=== PATIENT | female | born 1990 | race Caucasian/White ===

== ENCOUNTER 2017-02-15 17:08 | Emergency (ER) | payer OTHER ==
[~2017-02-15] VITALS: Ht 157.5 cm; Wt 81.7 kg
[~2017-02-15 17:08] MED LIST: ACETAMINOPHEN-1 EAC1 PO; AMOXICILLIN500 MG PO; CEPHALEXIN500 MG PO; CLINDAMYCIN HC150 MG PO; HYDROXYZINE HCL25 MG PO; NAPROSYN500 MG PO; NEXIUM 24HR20 M1 PO; NORCO 5-325 TA1 EACH PO; OMEPRAZOLE20 MG PO; PERCOCET 5-3251 EACH PO; ZOFRAN4 MG PO
== END 2017-02-15 20:06 | disposition home or self-care (01) ==
LOC: ED 17:08
DX: F32.9 Major depressive disorder, single episode, unspecified (principal); R45.851 Suicidal ideations; F41.9 Anxiety disorder, unspecified; Z88.0 Allergy status to penicillin; Z88.1 Allergy status to other antibiotic agents; Z88.5 Allergy status to narcotic agent; Z79.899 Other long term (current) drug therapy
CPT/HCPCS: 80053; 80176; 81001; 84443; 84703; 85025; 96372; 99283; G0480; J3486

== ENCOUNTER 2020-01-20 19:30 | Emergency (ER) | payer OTHER ==
[~2020-01-20] VITALS: Ht 157.5 cm; Wt 92.1 kg
--- OUTSIDE RECORDS SUMMARY | ~2020-01-20 | XMS | Encounter Summary ---
Demographics + + + | Address | [address] | | | [place] [address] | + + + | Home Phone | | + + + | Preferred Language | Unknown | + + + | Marital Status | Single | + + + | Taoism Affiliation | Unknown | + + + | Race | Unknown | + + + | Ethnic Group | Unknown | + + + Author + + + | Author | [facility] | | | and [place] | + + + | Organization | [facility] | | | and [place] | + + + | Address | Unknown | + + + | Phone | Unavailable | + + + Support + + +---------+ + | Name | Relationship | Address | Phone | + + +---------+ + | Vidal Shipman ECON | Unknown | | | [place] | | | | + + +---------+ + Care Team Providers + +------+ + | Care Oyster Culler Name | Role | Phone | + +------+ + PCP | Unavailable | + +------+ + Encounter Details +--------+ + + + + | Date | Type | Department | Care Team | Description | +--------+ + + + + | 08/30/ | Hospital | [facility] | | | | 1995 | Encounter | MED CTR EMERGENCY | | | | | | [address] | | | | | | [place] | | | | | | [address] | | | | | | [phone] | | | +--------+ + + + + Social History + +-------+ +--------+------+ | Tobacco Use | Types | Packs/Day | Years | Date | | | | | Used | | + +-------+ +--------+------+ | Never Assessed | | | | | + +-------+ +--------+------+ + + + | Sex Assigned at | Date Recorded | | | | + + + | Not on file | | + + + documented as of this encounter Plan of Treatment Not on filedocumented as of this encounter Visit Diagnoses Not on filedocumented in this encounter"
--- OUTSIDE RECORDS SUMMARY | ~2020-01-20 | XMS | Clinical Summary ---
Demographics + + + | Address | [address] | | | [place] [address] | + + + | Home Phone | | + + + | Preferred Language | Unknown | + + + | Marital Status | Single | + + + | Church Affiliation | Unknown | + + + | Race | Unknown | + + + | Ethnic Group | Unknown | + + + Author + + + | Author | [facility] | | | and [place] | + + + | Organization | [facility] | | | [...] Team Providers + +------+ + | Care Tandem Mill Roller Name | Role | Phone | + +------+ + | Addison Toussaint DO | PCP | | + +------+ + Allergies Not on File Medications Not on file Active Problems Not on file Social History + +-------+ +--------+------+ | Tobacco [...] on file | | + + + Last Filed Vital Signs Not on file Plan of Treatment + + + + + | Health Maintenance | Due Date | Last | Comments | | | | Done | | + + + + + | Cervical Cancer | | | | | Screening (Pap) | 3 | | | + + + + + | Vaccine: Influenza | | 06/30/19 | | | (#1) | 0 | 19, | | | | | 05/13/20 | | | | | 17, | | | | | 06/04/20 | | | | | 09 | | + + + + + | Vaccine: | | 02/27/20 | | | Dtap/Tdap/Td (2 - | 4 | 14 | | | Td) | | | | + + + + + Results Not on filefrom Last 3 Months Insurance + +--------+ +--------+ +---------+--------+ | Payer | Benefi | Subscriber | Effect | Phone | Address | Type | | | t Plan | ID | roula | | | | | | / | | Dates | | | | | | Group | | | | | | + +--------+ +--------+ +---------+--------+ | [employer] | [employer] | [id number] | 08/04/19 | [phone] | | Medica | | MEDICAID HMO | HEALTH | | 19-Pre | 1 | | id | | | MDCD | | sent | | | | | | HMO [place] | | | | | | + +--------+ +--------+ +---------+--------+ + +--------+ +--------+ + + | Guarantor Name | Accoun | Relation to | Date | Phone | Billing Address | | | t Type | Patient | of | | | | | | | | | | + +--------+ +--------+ + + | Anahi Ely | Person | Self [birth year] | [address] | | | al/Fam | | 1990 | [phone] | [place] [address] | | | marixa | | | 7 (Home) | | + +--------+ +--------+ + + Advance Directives + + + + + | Type | Date Recorded | Patient | Explanation | | | | Mail Order Sorter | | + + + + + | Power of | | | | | Signal Timer | | | | + + + + + | Advance | | | | | Directive | | | | + + + + +"
--- OUTSIDE RECORDS SUMMARY | ~2020-01-20 | XMS | Encounter Summary ---
Demographics + + + | Address | [address] | | | [place] [address] | + + + | Home Phone | | + + + | Preferred Language | Unknown | + + + | Marital Status | Single | + + + | Advent Affiliation | Unknown | + + + | Race | Unknown | + + + | Ethnic Group | Unknown | + + + Author + + + | Author | [facility] | | | and [place] | + + + | Organization | [facility] | | | and [...] Team Providers + +------+ + | Care Nurse Researcher Name | Role | Phone | + [...] | | LUCIANA SINGH | [place] [address] | | | | | [place] [address] | | | | | | [phone] | | | +--------+ + + + [...]
[~2020-01-20 19:30] MED LIST changes: +IBUPROFEN600 MG PO
== END 2020-01-20 22:10 | disposition home or self-care (01) ==
LOC: ED 19:30
DX: F10.129 Alcohol abuse with intoxication, unspecified (principal); F32.9 Major depressive disorder, single episode, unspecified; F41.9 Anxiety disorder, unspecified; F17.200 Nicotine dependence, unspecified, uncomplicated; Z88.0 Allergy status to penicillin; Z88.5 Allergy status to narcotic agent; Z88.1 Allergy status to other antibiotic agents; Z79.899 Other long term (current) drug therapy; Y90.3 Blood alcohol level of 60-79 mg/100 ml
CPT/HCPCS: 80053; 85025; 99284; G0480; J7030

== ENCOUNTER 2020-01-30 09:36 | Emergency (ER) | payer OTHER ==
[~2020-01-30] VITALS: Ht 157.5 cm; Wt 94.3 kg
--- OUTSIDE RECORDS SUMMARY | ~2020-01-30 | XMS | Encounter Summary ---
Demographics + + + | Address | [address] | | | [place] [address] | + + + | Home Phone | | + + + | Preferred Language | Unknown | + + + | Marital Status | Single | + + + | Jewish Affiliation | Unknown | + + + | Race | Unknown | + + + | Ethnic Group | Unknown | + + + Author + + + | Author | [facility] | | | and [place] | + + + | Organization | [facility] | | | and [...] Team Providers + +------+ + | Care Compliance Review Officer Name | Role | Phone | + +------+ + | Addison Toussaint DO | PCP | | + +------+ + Encounter Details +--------+ + + + + | Date | Type | Department | Care Team | Description | +--------+ + + + + | 08/24/ | Imaging | [facility] | Provider, | | | 2019 | Exam | MED CTR EXTERNAL | [address] | | | | | IMAGING [address] | [address] | | | | | [place] | [place] [address] | | | | | [place] [address] | | | | | | [phone] | | | +--------+ + + + [...] Not on filedocumented as of this encounter Procedures + +--------+ + + + | Procedure Name | Priori | Date/Time | Associated Diagnosis | Comments | | | ty | | | | + +--------+ + + + | XR HIP LEFT 2-3 | Routin | 06/30/2018 | | Results for this | | VIEWS | e | 10:05 AM | | procedure are in the | | | | PST | | results section. | + +--------+ + + + documented in this encounter Results XR Hip Left 2-3 Views (06/30/2018 10:05 AM PST) + + | Specimen | + + | | + + + + + | Narrative | Performed At | + + + | External films for comparison only | [facility] | | | | | No results will be in the chart. | | + + + + +---------+ + + | Performing | Address | City/State/Zipcode | Phone Number | | Organization | | | | + +---------+ + + | [facility] | | | | + +---------+ + + documented in this encounter Visit Diagnoses Not on filedocumented in this encounter"
--- OUTSIDE RECORDS SUMMARY | ~2020-01-30 | XMS | Encounter Summary ---
Demographics + + + | Address | [address] | | | [place] [address] | + + + | Home Phone | | + + + | Preferred Language | Unknown | + + + | Marital Status | Single | + + + | Orthodoxy Affiliation | Unknown | + + + | Race | Unknown | + + + | Ethnic Group | Unknown | + + + Author + + + | Author | [facility] | | | and [place] | + + + | Organization | [facility] | | | [...] Team Providers + +------+ + | Care Capacity Planning Engineer Name | Role | Phone | + +------+ + PCP | Unavailable | + +------+ + Encounter Details +--------+ + + + + | Date | Type | Department | Care Team | Description | +--------+ + + + + | 08/30/ | Hospital | [facility] | | | | 1994 | Encounter | MED CTR EMERGENCY | | | | | | [address] | | | | | | [place] | | | | | | [address] | | | | | | [phone] | | | +--------+ + + + [...]
--- OUTSIDE RECORDS SUMMARY | ~2020-01-30 | XMS | Clinical Summary ---
Demographics + + + | Address | [address] | | | [place] [address] | + + + | Home Phone | | + + + | Preferred Language | Unknown | + + + | Marital Status | Single | + + + | Jehovah'S Witness Affiliation | Unknown | + + + | Race | Unknown | + + + | Ethnic Group | Unknown | + + + Author + + + | Author | [facility] | | | and [place] | + + + | Organization | [facility] | | | [...] Team Providers + +------+ + | Care Is Analyst Name | Role | Phone | + [...] | [employer] | [employer] | [id number] | 08/04/19 | [phone] | | Medica [...] | | al/Fam | | 1990 | [phone] | [place] [address] | | | marixa | | | 7 (Home) | | + +--------+ +--------+ + + Advance Directives + + + + + | Type | Date Recorded | Patient | Explanation | | | | Wood Car Builder | | + + + + + | Power of | | | | | Waste Machine Tender | | | | + + + + + | Advance | | | | | Directive | | | | + + + + +"
--- OUTSIDE RECORDS SUMMARY | 2020-01-30 09:40 | XMS ---
PreManage Notification: BRENDAN MCKEON Security Assistant Golf Course Superintendent Events No recent Security Events currently on file CRITERIA MET - [facility] - 2 Visits in 30 Days CARE PROVIDERS There are no care providers on record at this time. Tamiko has no Care Guidelines for this patient. Kathi VISIT COUNT (12 MO.) 2 [facility] TOTAL 2 NOTE: Visits indicate total known visits. ED/[facility] VISIT TRACKING (12 MO.) 01/30/2020 09:[facility] [place] TYPE: Emergency COMPLAINT: - HIGH HEART RATE, FAINT 01/20/2020 19:[address] [facility] [place] TYPE: Emergency COMPLAINT: - ANXIETY DIAGNOSES: - Allergy status to penicillin - Anxiety disorder, unspecified - Major depressive disorder, single episode, unspecified - Other terminal carman (current) drug therapy - Allergy status to other antibiotic agents status - Allergy status to narcotic agent status - Alcohol abuse with intoxication, unspecified - Blood alcohol level of 60-79 mg/100 ml - Nicotine dependence, unspecified, uncomplicated INPATIENT VISIT TRACKING (12 MO.) No inpatient visits to display in this time frame [email or web address]
[2020-01-30] MEDS ORDERED: ZITHROMAX250 MG PO (12:53)
--- NOTE | 2020-01-30 19:32 | EKG ---
[facility] [address] [place] [address] Signed Normal sinus rhythm with sinus arrhythmia Cannot rule out Anterior infarct , age undetermined Abnormal ECG No previous ECGs available Confirmed by ROEL HDUSON MD ([id number]) on 01/30/2020 7:32:36 PM Electronically Signed By: ROEL HUDSON MD 01/30/201931 PATIENT NAME: ELI MCKEONALEJO RIVAS Electrocardiogram DATE OF : [birth year] PHYSICIAN: ROEL HUDSON MD REPORT #: [id number] REPORT IS CONFIDENTIAL AND NOT TO BE RELEASED WITHOUT AUTHORIZATION
== END 2020-01-30 13:30 | disposition home or self-care (01) ==
LOC: ED 09:36
DX: J18.9 Pneumonia, unspecified organism (principal); Z20.828 Contact with and (suspected) exposure to other viral communicable diseases; Z88.0 Allergy status to penicillin; Z88.5 Allergy status to narcotic agent
CPT/HCPCS: 71045; 80053; 81001; 83605; 83735; 84484; 84703; 85025; 85651; 86140; 93005; 93010; 99285-25

== ENCOUNTER 2020-08-15 06:30 | Day surgery (SDC) | payer OTHER ==
[~2020-08-15] VITALS: Ht 157.5 cm; Wt 95.0 kg
[~2020-08-15 06:30] MED LIST changes: +ZITHROMAX250 MG PO
[2020-08-15] MEDS ORDERED: NITROFURANTOIN100 M1 (06:41)
[2020-08-15] MEDS ORDERED: CELECOXIB200 MG PO (08:40)
[2020-08-15] MEDS ORDERED: OXYCODONE HCL5 MG PO (08:41)
--- NOTE | 2020-08-15 08:52 | NUR ---
08/15/20 0852 [place],Ama 0838- PT ARRIVES TO PACU AROUSABLE TO STIMULI. PT DOES NOT FOLLOW COMMANDS. PT UPDATED THAT SHE IS IN THE RECOVERY ROOM AND SURGERY IS ALL OVER. PT KEEPS MOVING HER ARMS AND LEGS. ATTEMPTED TO CALM PT. PT WILL CALM MOMENTARILY AND THEN START MOVING AROUND AGAIN. RESP EVEN AND UNLABORED. OXYGEN SAT HIGH 90'S ON 6L VIA MASK. 0841- PT TURNS HERSELF TO HER RIGHT SIDE SHE STATES THIS IS MORE COMFORTABLE FOR HER. 0844- OXYGEN TITRATED OFF. 0846- PT PROVIDED A PILLOW CASE PER HER REQUEST SHE WANTS TO HOLD ON TO IT. PT ENCOURAGED TO COUGH AND DEEP BREATHE HER OXYGEN SAT DROPPED TO 87% ON RA. PT IS ABLE TO DO THIS AND OXYGEN SAT INCREASED TO THE MID 90'S ON RA. 0848- PT PROVIDED A WARM BLANKET PER HER REQUEST.
--- NOTE | 2020-08-15 09:55 | NUR ---
PT ALERT, ORIENTED AND SUPPORTED BY HER S.O. ALLISON. PT'S FIRST SURGERY. PT SAYS SHE IS IN CONTROL, LOOKING FORWARD TO GETTING MORE USE OF HAND BACK. ALEKSEY ASKED ANSWERED. GAVE BLESSING, ALLISON WILL REMAIN
--- NOTE | 2020-08-15 10:03 | NUR ---
AMB TO [facility] LARGE [facility]T. DID WELL. DENIES DIZZINESS BEING UP.
--- NOTE | 2020-08-15 10:28 | NUR ---
1010 AWAKE AND READY TO GO HOME. TAKING PO AND AMB AND VOIDS.
--- NOTE | 2020-08-18 08:49 | OR ---
[facility] [address] [place], [place] [address] Signed DATE OF OPERATION: 08/15/2020 SURGEON: Kilo Mcmillan MD PREOPERATIVE DIAGNOSIS: Right dorsal ganglion wrist. POSTOPERATIVE DIAGNOSIS: Right dorsal ganglion wrist. PROCEDURE PERFORMED: Excision ganglion, right wrist. ROUTE SALESMAN AND DRIVER: None. ANESTHESIA: Denzel block. TOURNIQUET TIME: 22 minutes. BRIEF HISTORY: Hermelinda is a 29-year-old female with painful cyst on the back of her wrist. Splint again not helped. Risks and benefits of excision were discussed with her and she elected to proceed. DESCRIPTION OF PROCEDURE: Once consent was obtained, she was taken to the operating room. After adequate anesthesia, she was placed on the outpatient table. The [place] block was established and the hand was prepped and draped in a standard sterile fashion. The cyst was easily palpable and was marked out. A 1 inch incision was made transversely across the wrist crease carried through skin and subcutaneous tissue. The cyst was again easily identifiable and dissection was taken between 2nd and 3rd dorsal compartments. The cyst was eventually dissected free of overlying soft tissue and all bleeders were cauterized as we went. The tendons were carefully retracted and protected. The cyst was dissected from the attachment to the dorsal capsule. This was dissected down to a stalk, which was transected. The cyst was passed off the table. The surrounding soft tissue was then roughened using the curette, copiously irrigated with antibiotic solution. The wound was then closed in layers using 3-0 Monocryl. Steri-Strips were applied. The Electronically Signed By: KILO MCMILLAN MD 08/18/20 0849 PATIENT NAME: HERMELINDA MCKEON OPERATIVE REPORT DATE OF : [birth year] REPORT #: [id number] PHYSICIAN: KILO MCMILLAN MD PCP: QAMAR QUACH DO REPORT IS CONFIDENTIAL AND NOT TO BE RELEASED WITHOUT AUTHORIZATION [facility] [address], [place] [address] Signed wound was then infiltrated with an 8 mL 0.25% plain Marcaine. The wound was dressed with Adaptic, sterile gauze and a radial gutter splint. She tolerated the procedure well. All sponge, needle, and instrument counts were correct. Kilo Mcmillan MD BA/MODL /[id number] Copies: ~ Electronically Signed By: KILO MCMILLAN MD 08/18/20 0849 PATIENT NAME: HERMELINDA MCKEON OPERATIVE REPORT DATE OF : [birth year] REPORT #: [id number] PHYSICIAN: KILO MCMILLAN MD PCP: QAMAR QUACH DO REPORT IS CONFIDENTIAL AND NOT TO BE RELEASED WITHOUT AUTHORIZATION
== END 2020-08-15 10:10 | disposition home or self-care (01) ==
LOC: DS 06:30
PROVIDERS: ATTEND Specialist
PROC: 0LB50ZZ Excision of Right Lower Arm and Wrist Tendon, Open Approach (ICD-10-PCS; principal; 2020-08-15 08:00)
DX: M67.431 Ganglion, right wrist (principal); M19.90 Unspecified osteoarthritis, unspecified site; K21.9 Gastro-esophageal reflux disease without esophagitis; Z88.1 Allergy status to other antibiotic agents; Z88.5 Allergy status to narcotic agent; Z88.0 Allergy status to penicillin; Z91.048 Other nonmedicinal substance allergy status; Z87.891 Personal history of nicotine dependence
CPT/HCPCS: J0690; J1885; J2001; J2704; J3010; J7121

== ENCOUNTER 2021-03-11 08:35 | Emergency (ER) | payer OTHER ==
[~2021-03-11] VITALS: Ht 157.5 cm; Wt 94.8 kg
[~2021-03-11 08:35] MED LIST changes: +CELECOXIB200 MG PO; +NITROFURANTOIN100 M1; +OXYCODONE HCL5 MG PO
--- OUTSIDE RECORDS SUMMARY | 2021-03-11 08:44 | XMS ---
PreManage Notification: BRENDAN MCKEON Security Innersole Fitter Events No recent Security Events currently on file CRITERIA MET - [facility] - Has Care Guidelines CARE PROVIDERS QAMAR QUACH Internal Medicine 01/31/2020-Current PHONE: [phone] Tamiko has no Care Guidelines for this patient. Care History Medical/Surgical 01/31/2020 [facility] Patient was seen in [facility] first then transferred to ED.\T\nbsp; Awaiting COVID 19 test results at home.\T\nbsp; Has telehealth visit with PCP Dr. Quach 01/31/2020 at 11:00 am. 01/31/2020 [facility] - Patient is currently established with [facility]. If patient is seen in the ED during business hours. Please contact [facility] at [facility]. Care Recommendation: If this patient has had 5 or more Emergency Department visits in the last 12 months.\T\nbsp; Patient will require education on the scope and purpose of the ED as an acute care provider not a Primary Care Provider and should not be utilized for chronic conditions.\T\nbsp; These are guidelines and the provider should exercise clinical judgment when providing care. E.D. VISIT COUNT (12 MO.) 1 [facility] TOTAL 1 NOTE: Visits indicate total known visits. ED/UCC VISIT TRACKING (12 MO.) 03/11/2021 08:36 [facility] TYPE: Emergency COMPLAINT: - UPPER ABD PAIN, VOMITING INPATIENT VISIT TRACKING (12 MO.) No inpatient visits to display in this time frame [id number]
[2021-03-11] MEDS ORDERED: PANTOPRAZOLE SO20 MG PO (08:51)
[2021-03-11] MEDS ORDERED: NASAL DECONGEST10 MG PO (08:52)
[2021-03-11] MEDS ORDERED: ONDANSETRON ODT8 MG PO (09:39)
== END 2021-03-11 09:47 | disposition home or self-care (01) ==
LOC: ED 08:35
DX: K29.00 Acute gastritis without bleeding (principal); K21.9 Gastro-esophageal reflux disease without esophagitis; Z87.891 Personal history of nicotine dependence; Z88.0 Allergy status to penicillin; Z88.5 Allergy status to narcotic agent; Z79.899 Other long term (current) drug therapy
CPT/HCPCS: 99283

== ENCOUNTER 2021-06-21 00:07 | Emergency (ER) | payer OTHER ==
[~2021-06-21] VITALS: Ht 154.9 cm; Wt 97.1 kg
[~2021-06-21 00:07] MED LIST changes: +NASAL DECONGEST10 MG PO; +ONDANSETRON ODT8 MG PO; +PANTOPRAZOLE SO20 MG PO
== END 2021-06-21 02:50 | disposition home or self-care (01) ==
LOC: ED 00:07
DX: G43.909 Migraine, unspecified, not intractable, without status migrainosus (principal); Z87.891 Personal history of nicotine dependence; Z88.0 Allergy status to penicillin; Z88.5 Allergy status to narcotic agent; Z79.899 Other long term (current) drug therapy
CPT/HCPCS: 70450; 81001; 84703; 96374; 96375; 99284-25; J1200; J1885; J2765; J7030

== ENCOUNTER 2021-10-27 22:19 | Emergency (ER) | payer OTHER ==
[~2021-10-27] VITALS: Ht 154.9 cm; Wt 98.9 kg
[2021-10-28] MEDS ORDERED: CLEOCIN HCL300 MG PO (01:45)
== END 2021-10-28 01:54 | disposition home or self-care (01) ==
LOC: ED 22:19
DX: J32.9 Chronic sinusitis, unspecified (principal); Z87.891 Personal history of nicotine dependence; Z88.0 Allergy status to penicillin; Z88.5 Allergy status to narcotic agent; Z79.899 Other long term (current) drug therapy
CPT/HCPCS: 87880; 96372; 99283; J1885

== ENCOUNTER 2021-11-18 11:43 | Emergency (ER) | payer OTHER ==
[~2021-11-18] VITALS: Ht 154.9 cm; Wt 99.8 kg
[~2021-11-18 11:43] MED LIST changes: +CLEOCIN HCL300 MG PO
--- OUTSIDE RECORDS SUMMARY | 2021-11-18 11:52 | XMS ---
PreManage Notification: BRENDAN MCKEON Security Drug Abuse Worker Events No recent Security Events currently on file CRITERIA MET - [facility] - 2 Visits in 30 Days CARE PROVIDERS [facility] 03/12/2021-Current PHONE: [phone] Tamiko has no Care Guidelines for this patient. Kathi VISIT COUNT (12 MO.) 4 [facility] TOTAL 4 NOTE: Visits indicate total known visits. ED/UCC VISIT TRACKING (12 MO.) 11/18/2021 11:45 [facility] TYPE: Emergency COMPLAINT: - L HIP PAIN, RADIATING UP AND DOWN SIDE 10/27/2021 22:20 [facility] [place] TYPE: Emergency COMPLAINT: - SORE THROAT, SINUS PAIN DIAGNOSES: - Allergy status to penicillin - Other halfway (current) drug therapy - Personal history of nicotine dependence - Allergy status to narcotic agent - Chronic sinusitis, unspecified - Fever, unspecified 06/21/2021 00:08 [facility] [place] TYPE: Emergency COMPLAINT: - HEADACHE DIAGNOSES: - Other adjunct faculty for medical terminology (current) drug therapy - Personal history of nicotine dependence - Headache, unspecified - Migraine, unspecified, not intractable, without status migrainosus - Allergy status to narcotic agent - Allergy status to penicillin 03/11/2021 08:[address] [facility] [place] TYPE: Emergency COMPLAINT: - UPPER ABD PAIN, VOMITING DIAGNOSES: - Epigastric pain - Personal history of nicotine dependence - Allergy status to narcotic agent - Acute gastritis without bleeding - Gastro-esophageal reflux disease without esophagitis - Allergy status to penicillin - Other halfway (current) drug therapy INPATIENT VISIT TRACKING (12 MO.) No inpatient visits to display in this time frame [id number]
[2021-11-18] MEDS ORDERED: DOXEPIN HCL10 MG PO (13:03)
[2021-11-18] MEDS ORDERED: LIDODERM1 EACH TD (14:28)
[2021-11-18] MEDS ORDERED: NEURONTIN100 MG PO (14:28)
[2021-11-18] MEDS ORDERED: PREDNISONE20 MG PO (14:28)
== END 2021-11-18 14:47 | disposition home or self-care (01) ==
LOC: ED 11:43
DX: M54.42 Lumbago with sciatica, left side (principal); Z87.891 Personal history of nicotine dependence; Z88.0 Allergy status to penicillin; Z88.5 Allergy status to narcotic agent; Z79.899 Other long term (current) drug therapy
CPT/HCPCS: 96372; 99283-25; J1100; J1885

== ENCOUNTER 2022-09-22 17:14 | Emergency (ER) | payer OTHER ==
[~2022-09-22] VITALS: Ht 154.9 cm; Wt 97.8 kg
[~2022-09-22 17:14] MED LIST changes: +DOXEPIN HCL10 MG PO; +LIDODERM1 EACH TD; +NEURONTIN100 MG PO; +PREDNISONE20 MG PO
== END 2022-09-22 18:59 | disposition home or self-care (01) ==
LOC: ED 17:14
DX: G43.109 Migraine with aura, not intractable, without status migrainosus (principal); H53.8 Other visual disturbances; Z87.891 Personal history of nicotine dependence; Z88.0 Allergy status to penicillin; Z88.8 Allergy status to other drugs, medicaments and biological substances; Z88.5 Allergy status to narcotic agent; Z79.899 Other long term (current) drug therapy
CPT/HCPCS: 70450; 99284-25

== ENCOUNTER 2023-01-20 14:19 | Emergency (ER) | payer OTHER ==
[~2023-01-20] VITALS: Ht 154.9 cm; Wt 98.0 kg
[~2023-01-20 14:19] MED LIST changes: +IMITREX25 MG PO
[2023-01-20] MEDS ORDERED: TAMIFLU75 MG PO (16:57)
[2023-01-20] MEDS ORDERED: ONDANSETRON HCL4 MG PO (16:57)
[2023-01-20 17:30] VITALS: BP 124/88
== END 2023-01-20 17:30 | disposition home or self-care (01) ==
LOC: ED 14:19
DX: J10.1 Influenza due to other identified influenza virus with other respiratory manifestations (principal); Z88.0 Allergy status to penicillin; Z88.5 Allergy status to narcotic agent; Z20.822 Contact with and (suspected) exposure to COVID-19; Z79.52 Long term (current) use of systemic steroids; Z87.891 Personal history of nicotine dependence
CPT/HCPCS: 71045; 81001; 84703; 87502; 99284 25; A9270; C9803; U0002

== ENCOUNTER 2023-03-17 20:53 | Emergency (ER) | payer OTHER ==
[~2023-03-17] VITALS: Ht 154.9 cm; Wt 98.0 kg
--- OUTSIDE RECORDS SUMMARY | ~2023-03-17 | XMS | Continuity of Care Document ---
Demographics + + + | Address | [address] | | | [place] [address] | + + + | Preferred Language | Unknown | + + + | Marital Status | Never | + + + | Sabianism Affiliation | Unknown | + + + | Race | White | + + + | Ethnic Group | Not or | + + + Author + + + | Author | [facility] | + + + | Organization | [facility] | + + + | Address | [address] | | | [place] [address] | + + + | Phone | | + + + Care Team Providers + + + + | Care Research Assistant Name | Role | Phone | + + + + Unavailable | Unavailable | + + + + Allergies No information. Encounters No information. Functional Status No information. Immunizations No information. Medications No information. Problems + + + + | date | description | facility | + + + + | 2023-01-20 14:20 | FLU DUE TO OTH IDENT | [facility] | | | INFLUENZA VIRUS W OTH RESP | | | | [place] | | + + + + | 2023-01-20 14:20 | FEVER, UNSPECIFIED | [facility] | + + + + | 2023-01-20 14:20 | ROTOR COIL TAPER (CURRENT) USE OF | [facility] | | | SYSTEMIC STEROIDS | | + + + + | 2023-01-20 14:20 | PERSONAL HISTORY OF | [facility] | | | NICOTINE DEPENDENCE | | + + + + | 2023-01-20 14:20 | ALLERGY STATUS TO | [facility] | | | PENICILLIN | | + + + + | 2023-01-20 14:20 | ALLERGY STATUS TO NARCOTIC | [facility] | | | AGENT STATUS | | + + + + | 2023-02-15 16:14 | ABNORMAL UTERINE AND | [facility] | | | VAGINAL BLEEDING, | | | | UNSPECIFIED | | + + + + | 2023-02-15 16:14 | DYSMENORRHEA, UNSPECIFIED | [facility] | + + + + Procedures No information. Results/Labs No information. Social History +--------+ + + | date | description | facility | +--------+ + + Vital Signs No information."
--- OUTSIDE RECORDS SUMMARY | ~2023-03-17 | XMS | Continuity of Care Document ---
Demographics + + + | Address | [address] | | | [place] [address] | + + + | Preferred Language | Unknown | + + + | Marital Status | Never | + + + | Caodaism Affiliation | Unknown | + + + | Race | White | + + + | Ethnic Group | Not or | + + + Author + + + | Author | [facility] | + + + | Organization | [facility] | + + + | Address | [address] | | | [place] [address] | + + + | Phone | | + + + Care Team Providers + + + + | Care Japanese Professor Name | Role | Phone | + [...] + + + | 2023-01-20 14:20 | MANAGER LOAN (CURRENT) USE OF | [facility] | | [...]
[~2023-03-17 20:53] MED LIST changes: +ONDANSETRON HCL4 MG PO; +TAMIFLU75 MG PO
[2023-03-17 21:45] VITALS: BP 154/102
== END 2023-03-17 21:46 | disposition home or self-care (01) ==
LOC: ED 20:53
DX: H10.9 Unspecified conjunctivitis (principal); B96.89 Other specified bacterial agents as the cause of diseases classified elsewhere; Z87.891 Personal history of nicotine dependence; Z88.0 Allergy status to penicillin; Z88.5 Allergy status to narcotic agent; Z79.899 Other long term (current) drug therapy
CPT/HCPCS: 99283